=== PATIENT | female | born 1985 | race Caucasian/White ===

== ENCOUNTER → 2018-11-24 | Outpatient (CLI) | payer OTHER ==
[2018-11-24 16:12] LABS: CHLAMYDIA DNA AMPLIFICATION NEGATIVE (NEGATIVE); GC DNA AMPLIFICATION NEGATIVE (NEGATIVE)
[2018-11-24 21:11] LABS: BASO % 0.3 % (0.0-1.0); EOS # 0.3 10^3/uL (0.0-0.5); EOS % 2.5 % (0.0-3.0); HEMATOCRIT 39.5 % (36.0-47.0); HEMOGLOBIN 13.3 g/dl (12.0-15.5); LYMPH # 1.4 10^3/uL (1.5-5.0); LYMPH % 13.1 % (24.0-44.0); MEAN CORPUSCULAR HGB CONC 33.7 g/dl (32.0-36.5); MEAN CORPUSCULAR VOLUME 89.2 fl (80.0-96.0); MONO # 0.9 10^3/uL (0.0-0.8); NEUTROPHILS # 8.3 10^3/uL (1.5-8.5); NEUTROPHILS % 75.6 % (36.0-66.0); PLATELET COUNT, AUTOMATED 224 10^3/uL (150-450); RED BLOOD COUNT 4.43 10^6/uL (4.00-5.40); WHITE BLOOD COUNT 10.9 10^3/uL (4.0-10.0)
[2018-11-27 12:52] LABS: HEPATITIS A ANTIBODY IGM NEGATIVE (NEGATIVE); HEPATITIS B CORE ANTIBODY IGM NEGATIVE (NEGATIVE); HEPATITIS B SURFACE ANTIGEN NEGATIVE (NEGATIVE)
== END ==
LOC: M SMT 10:25
PROVIDERS: ATTEND Advanced Practice Midwife
DX: Z34.82 Encounter for supervision of other normal pregnancy, second trimester (principal)

== ENCOUNTER → 2018-12-21 | Outpatient (CLI) | payer OTHER ==
--- NOTE | 2018-12-21 13:32 | REP ---
Obstetric ultrasound for anatomy: There is a single intrauterine gestation in a vertex presentation. There is movement and cardiac activity. The heart rate is 144 beats per minute. The placenta is anterior. There is no placenta previa or abruptio. The placenta is grade zero. The amniotic fluid volume subjectively is normal. The cervix measures 5.8 cm length. Gestational age by today's ultrasound is 21 weeks 6 days/EVELINA 04/27/2019. Gestational age by LMP is 21 weeks 1 day/EVELINA 05/02/2019. weight is for and 56 grams/1 pound, 0 ounces. This is the 73rd percentile for 21 weeks 4 days. The following anatomic structures are identified and are unremarkable: Cranium, choroid plexus, cavum septum pellucidum, cerebellum, face, facial profile, upper lip, lungs, four-chamber heart, cardiac right and left ventricular outflow tracts, diaphragm, stomach, cord insertion, three-vessel cord, kidneys, bladder, and upper lower extremities. Suboptimally demonstrated because of position is the spine. A followup study of the spine might be considered. Electronically Signed by Christopher Bonner MD 12/21/2018 01:25 P
== END ==
LOC: M RAD 09:04
PROVIDERS: ATTEND Advanced Practice Midwife
DX: Z34.82 Encounter for supervision of other normal pregnancy, second trimester (principal); Z3A.21 21 weeks gestation of pregnancy

== ENCOUNTER → 2019-01-05 | Outpatient (CLI) | payer OTHER ==
--- NOTE | 2019-01-05 18:30 | REP ---
Clinical: Anatomical evaluation. Comparison: 12/21/2018 . Findings: Examination demonstrates a single live intrauterine in variable presentation. motion is identified by technologist. Placenta is noted anterior and grade zero without evidence for placenta previa or abruption. Amniotic fluid volume is normal. Cervix measures 6.4 cm in length and appears closed. No evidence for nuchal cord. Gestational age by LMP 23 weeks 2 days with EVLEINA 05/02/2019 . Gestational age by current measurements 23 weeks 5 days with EVELINA 04/29/2019 . FHR equals 133 beats per minute. Estimated weight 620 grams ( 57 percentile). Anatomical assessment demonstrates normal structures including cranium, choroid plexus, cavum, cerebellum/posterior fossa, facial features, lungs, four-chamber heart/ventricular outflow tracts, diaphragm, stomach, cord insertion/three-vessel cord, kidneys/bladder, spine, and extremities. Impression: 1. Single live intrauterine in variable presentation demonstrating appropriate interval growth. 2. Anatomical assessment is complete and normal. No gross abnormalities are identified. Electronically Signed by Donal Daniel MD 01/05/2019 06:22 P
== END ==
LOC: M RAD 09:13
PROVIDERS: ATTEND Advanced Practice Midwife
DX: Z34.82 Encounter for supervision of other normal pregnancy, second trimester (principal); Z3A.23 23 weeks gestation of pregnancy

== ENCOUNTER → 2019-02-03 | Outpatient (CLI) | payer OTHER ==
[2019-02-03 10:15] LABS: HEMATOCRIT 34.9 % (36.0-47.0); HEMOGLOBIN 11.8 g/dl (12.0-15.5); MEAN CORPUSCULAR HEMOGLOBIN 29.6 pg (27.0-33.0); MEAN CORPUSCULAR HGB CONC 33.8 g/dl (32.0-36.5); MEAN CORPUSCULAR VOLUME 87.7 fl (80.0-96.0); PLATELET COUNT, AUTOMATED 209 10^3/uL (150-450); RED BLOOD COUNT 3.98 10^6/uL (4.00-5.40); WHITE BLOOD COUNT 10.3 10^3/uL (4.0-10.0)
[2019-02-03 10:29] LABS: GLUCOSE CHALLENGE TEST 1 HOUR 93 MG/DL (LESS THAN 140)
[2019-02-03 11:21] LABS: RUBELLA IgG QUALITATIVE IMMUNE (IMMUNE)
== END ==
LOC: M LAB 08:09
PROVIDERS: ATTEND Advanced Practice Midwife
DX: Z34.82 Encounter for supervision of other normal pregnancy, second trimester (principal)

== ENCOUNTER → 2019-04-05 | Outpatient (REF) | payer OTHER | LOC: M SFHCWAGY 16:55 | PROVIDERS: ATTEND Advanced Practice Midwife | DX: Z34.93 Encounter for supervision of normal pregnancy, unspecified, third trimester (principal) ==

== ENCOUNTER 2019-05-05 17:51 | Inpatient (IN) | payer OTHER ==
[~2019-05-05] VITALS: Ht 170.2 cm; Wt 85.4 kg
[2019-05-05 18:16] VITALS: BP 129/87
[2019-05-05] MEDS ORDERED: COLA100C5 PO (18:25)
[2019-05-05] MEDS ORDERED: SENN1TAB8 PO (18:25)
[2019-05-05 19:29] VITALS: BP 136/88
[2019-05-05] MEDS: miSOPROStol 50 MCG 1/2 TAB (S0191) PO SCH (20:10)
[2019-05-05 20:11] VITALS: BP 130/70
[2019-05-05 20:37] LABS: HEMATOCRIT 35.3 % (36.0-47.0); HEMOGLOBIN 11.1 g/dl (12.0-15.5); MEAN CORPUSCULAR HEMOGLOBIN 25.6 pg (27.0-33.0); MEAN CORPUSCULAR HGB CONC 31.4 g/dl (32.0-36.5); MEAN CORPUSCULAR VOLUME 81.3 fl (80.0-96.0); PLATELET COUNT, AUTOMATED 209 10^3/uL (150-450); RED BLOOD COUNT 4.34 10^6/uL (4.00-5.40); WHITE BLOOD COUNT 10.3 10^3/uL (4.0-10.0)
[2019-05-05 21:50] VITALS: BP 114/68
[2019-05-05 22:54] VITALS: BP 123/74
[2019-05-06] VITALS (64 sets, daily range): BP systolic 69–153; BP diastolic 43–94
[2019-05-06] MEDS: miSOPROStol 50 MCG 1/2 TAB (S0191) PO SCH ×2 (00:21→04:45)
[2019-05-06] MEDS ORDERED: PROMETHAZINE INJ 25 MG/ML VIAL (J2550) IV ONE (05:15)
[2019-05-06] MEDS ORDERED: BUTORPHANOL 2 MG/ML INJ (J0595) IV ONE (05:15)
--- NOTE | 2019-05-06 05:23 | HPE ---
DATE OF ADMISSION: 05/05/2019 HISTORY OF PRESENT ILLNESS: Veda is as 34-year-old 2, para 1-0-0-1 at 40-2/7 weeks gestation, estimated date of confinement (EDC) of 05/02/2019 based on last menstrual period and confirmed by first trimester ultrasound. She presents to labor and delivery today for induction of labor due to post-term . She denies any regular painful contractions, vaginal bleeding and leakage of fluid. The fetus has been active. Her care was initiated in the first trimester at [facility]. Her course has been uncomplicated. OBSTETRICAL HISTORY: October 2016, 8 pounds 5 ounces female spontaneous vaginal delivery following induction of labor at 41 weeks gestation for gestational hypertension. OBSTETRIC LABS: O+, antibody screen negative, rubella immune, VDRL nonreactive. Urine culture no growth. Hep B surface antigen negative, HIV negative. Hep C antibody nonreactive. Gonorrhea and chlamydia negative, syphilis negative. Her quad screen returned normal. results of gestational diabetic screening normal at 93 and her GBS is negative. PAST MEDICAL HISTORY: 1. Childhood varicella. 2. Childhood epilepsy, last seizure in 2002. PAST SURGICAL HISTORY: [place] tooth extraction. FAMILY HISTORY: Hypertension. SOCIAL HISTORY: The patient is . She is a nonsmoker. She denies alcohol or drug use. No history of any sexually transmitted infections and denies history of abuse physical, sexual or emotional. ALLERGIES: SULFA. CURRENT MEDICATIONS - vitamin with iron OBJECTIVE: VITAL SIGNS: Temperature 98.7, pulse 98, respiration 18, blood pressure (BP) 129/87. heart is 150 with moderate variability, positive accelerations, no decelerations. There is no pattern of regular contractions. Her abdomen is gravid, cephalic presentation. Estimated weight 7 pounds 11 ounces to 8 pounds. Sterile vaginal exam: 1 cm dilated, 50% effaced, minus three station posterior moderate texture. No show with the exam. ASSESSMENT: Intrauterine at 42-2/7 weeks. heart rate is category one. PLAN: Admit the patient to labor and delivery. I did review risks, benefits and alternatives related to induction of labor. All of her questions have been answered. Routine labs have been ordered. Saline lock. Regular diet at this time. Out of bed ad rosemary. I plan to start misoprostol 50 mcg by mouth every 4 h for cervical ripening and then proceed to IV Pitocin. The patient is considering IV pain medications and/or an epidural for labor coping when she is in active labor. She has been verbally consented for emergency surgery and blood products if necessary. I do anticipate cervical ripening.
[2019-05-06] MEDS ORDERED: OXYTOCIN 30 UNITS IN 0.9% NaCl 500ML IV BAG (J2590) As Ordered ONE (06:55)
[2019-05-06] MEDS ORDERED: LACTATED RINGER'S 1000 ML IV ONE (07:00)
[2019-05-06] MEDS ORDERED: FENTANYL 2MCG/ML ROPIVACAINE 0.2% IN 0.9% NACL 100ML IVBAG As Ordered ONE (07:21)
[2019-05-06] MEDS ORDERED: ePHEDrine SULFATE 25 MG/5 ML(5MG/ML) SYRINGE As Ordered ONE (08:48)
[2019-05-06] MEDS: ePHEDrine SULFATE 25 MG/5 ML(5MG/ML) SYRINGE IV PRN ×3 (08:50→13:24)
[2019-05-06] MEDS ORDERED: diphenhydrAMINE INJ 50MG/ML VIAL (J1200) IV PRN ×2 (09:00→16:29)
[2019-05-06] MEDS ORDERED: REFRIGERATOR IV KEYS XX PRN (09:00)
[2019-05-06] MEDS ORDERED: ONDANSETRON 4MG/2ML VIAL (J2405) IV PRN ×3 (09:00→17:45)
[2019-05-06] MEDS ORDERED: EPIDURAL/PCA KEYS XX PRN (09:00)
[2019-05-06] MEDS ORDERED: FENTANYL/ROPIVACAINE/NACL BAG 100 ML EPIDURAL SCH (09:00)
[2019-05-06] MEDS ORDERED: LACTATED RINGER'S 1000 ML IV PRN (09:00)
[2019-05-06] MEDS ORDERED: NALOXONE INJ 0.4 MG/1 ML VIAL (J2310) IV PRN ×3 (09:00→16:29)
[2019-05-06] MEDS ORDERED: EPIDURAL COMMENT XX SCH (09:00)
[2019-05-06] MEDS ORDERED: BICITRA 30ML SOLN UDC PO ONE (16:00)
[2019-05-06] MEDS ORDERED: ceFAZolin SOD 2 GM in IV 1 EA IV ONE (16:00)
[2019-05-06] MEDS ORDERED: AZITHROMYCIN INJ 500 MG, VIAL MATE ADAPTER 1 EACH in D5W 250 ML IV ONE (16:00)
[2019-05-06] MEDS ORDERED: METOCLOPRAMIDE INJ 10MG/2ML VIAL (J2765) IV PRN (16:29)
[2019-05-06] MEDS ORDERED: NALBUPHINE HCL 10 MG/ML AMP (J2300) IV PRN (16:29)
[2019-05-06] MEDS ORDERED: KETOROLAC 60 MG/2 ML VIAL (J1885) As Ordered ONE (16:51)
[2019-05-06] MEDS ORDERED: ONDANSETRON 4MG/2ML VIAL (J2405) As Ordered ONE (16:51)
[2019-05-06] MEDS ORDERED: dexameTHASONE 4 MG/ML 1ML VIAL (J1100) As Ordered ONE (16:51)
[2019-05-06] MEDS ORDERED: OXYTOCIN INJ 10 UNITS/ML VIAL (J2590) As Ordered ONE (16:51)
[2019-05-06] MEDS ORDERED: MORPHINE PRES-FREE INJ 10 MG/10 ML VIAL (J2274) As Ordered ONE (16:51)
[2019-05-06] MEDS ORDERED: PHENYLephrine HCL 500 MCG/5 ML (100MCG/ML) SYRINGE (J2370) As Ordered ONE (17:03)
[2019-05-06] MEDS ORDERED: PERCOCET 5MG/325MG TAB PO PRN (17:15)
[2019-05-06] MEDS ORDERED: ONDANSETRON 4 MG ORAL DISINTEGRATING TAB (Q0162 PER 1MG) PO PRN (17:15)
[2019-05-06] MEDS ORDERED: fentaNYL 100 MCG/2 ML INJECTION (J3010) IV PRN (17:45)
[2019-05-06] MEDS ORDERED: oxyCODONE 5MG TAB PO PRN (17:45)
[2019-05-06] MEDS ORDERED: RHOGAM 300 MCG (1500 IU) INJ (J2790) IM SCH (18:00)
[2019-05-06] MEDS ORDERED: OXYTOCIN DRIP 30 UNITS in IV 1 EA IV SCH (18:00)
[2019-05-06] MEDS ORDERED: MEASLES,MUMPS,RUBELLA VACCINE INJ (MMR-II) (90707) SC SCH (18:00)
[2019-05-06] MEDS: DOCUSATE SODIUM 100 MG CAP PO PRN (21:27)
[2019-05-06] MEDS: LR 1,000 ML IV SCH (22:01)
[2019-05-06] MEDS: KETOROLAC 30 MG/ML VIAL (J1885) IV SCH (23:43)
[2019-05-07 02:00] VITALS: BP 102/61
[2019-05-07] MEDS: LR 1,000 ML IV SCH (02:00)
[2019-05-07 05:31] VITALS: BP 98/53
[2019-05-07] MEDS: KETOROLAC 30 MG/ML VIAL (J1885) IV SCH ×2 (05:32→10:32)
[2019-05-07 07:19] LABS: HEMATOCRIT 25.1 % (36.0-47.0); MEAN CORPUSCULAR HEMOGLOBIN 25.9 pg (27.0-33.0); MEAN CORPUSCULAR HGB CONC 32.3 g/dl (32.0-36.5); MEAN CORPUSCULAR VOLUME 80.2 fl (80.0-96.0); PLATELET COUNT, AUTOMATED 160 10^3/uL (150-450); RED BLOOD COUNT 3.13 10^6/uL (4.00-5.40); WHITE BLOOD COUNT 17.3 10^3/uL (4.0-10.0)
[2019-05-07 07:20] LABS: HEMOGLOBIN 8.1 g/dl (12.0-15.5)
[2019-05-07] MEDS ORDERED: SLF 3 ML SYR IV PRN (08:45)
[2019-05-07] MEDS: PRENATAL VITAMINS CHEWABLE TABLET PO SCH (08:45)
[2019-05-07 10:00] VITALS: BP 96/57
[2019-05-07] MEDS: PERCOCET 5MG/325MG TAB PO PRN ×2 (10:39→22:44)
[2019-05-07] MEDS: SLF 3 ML SYR IV SCH ×2 (12:46→22:12)
[2019-05-07 14:00] VITALS: BP 95/51
--- NOTE | 2019-05-07 14:31 | RO ---
DATE OF PROCEDURE: 05/06/2019 PREPROCEDURE DIAGNOSIS: 40 and 6/7 weeks gestation, arrest of dilation. POSTPROCEDURE DIAGNOSIS: 40 and 6/7 weeks gestation, arrest of dilation. PROCEDURE: Primary low transverse section. SURGEON: Dr. Romulo Wells CHASER HELPER: , DO ANESTHESIA: Epidural. ESTIMATED BLOOD LOSS: 800 mL. IV FLUIDS: 1300 mL lactated Ringers (LR). URINE OUTPUT: 75 mL. FINDINGS: 8 pound 14 ounce, 4020 gram, female infant, Apgars 9 and 9, occiput posterior, asynclitic, extended vertex. Normal uterus, fallopian tubes and ovaries. Clear amniotic fluid. DESCRIPTION OF PROCEDURE: The patient was taken to the operating room where epidural anesthesia was found to be adequate. She was prepped and draped in sterile fashion in the supine position. A Mendoza catheter was already in place. A Pfannenstiel skin incision was created with a scalpel and carried through to the fascia. The fascia was nicked and extended. The fascia was dissected off the rectus muscles. The peritoneal cavity was entered. A bladder flap was created. A Mobius retractor was placed. A curvilinear incision was made in the lower uterine segment until clear fluid was noted. This was extended manually. The infant was delivered from the vertex position without difficulty. The cord was doubly clamped and cut. The infant was handed off to the awaiting nurse. The placenta was expressed. The uterus was closed with #0 Vicryl in a running locked fashion. A second imbricating layer of #0 Vicryl was placed. The peritoneum was closed with #2-0 Vicryl. The Mobius was removed. The fascia was closed with #0 Vicryl in a running fashion. The deep layer was irrigated. The skin was closed with #4-0 Monocryl subcuticular sutures. Sponge, instrument and needle counts were correct.
[2019-05-07 17:47] VITALS: BP 103/60
[2019-05-07] MEDS: IBUPROFEN 800 MG TAB PO SCH (18:31)
[2019-05-07] MEDS: DOCUSATE SODIUM 100 MG CAP PO PRN (22:44)
[2019-05-08] MEDS: IBUPROFEN 800 MG TAB PO SCH (02:53)
[2019-05-08 03:00] VITALS: BP 106/70
[2019-05-08] MEDS: SLF 3 ML SYR IV SCH (06:00)
[2019-05-08 06:10] VITALS: BP 113/70
--- NOTE | 2019-05-08 06:56 | DS.PDOC ---
Discharge Summary General Date of Admission May 05, 2019 at 17:51 Date of Discharge 05/08/2019 Discharge Summary PROCEDURES PERFORMED DURING STAY: Primary section. ADMITTING DIAGNOSES: 1. Induction of labor at term. DISCHARGE DIAGNOSES: 1. Primary section for arrest of dilation. COMPLICATIONS/CHIEF COMPLAINT: Induction. HISTORY OF PRESENT ILLNESS: Ms Pepper was admitted for induction 05/06/2019. A primary section was performed by Dr Watson Wells for arrest of dilation on 05/06/2019. HOSPITAL COURSE: Ms Pepper feels well. Reports adequate pain management. OOB independently. She is on demand. Voiding QS and passing flatus. DISCHARGE MEDICATIONS: Please see below. ALLERGIES: Please see below. PHYSICAL EXAMINATION ON DISCHARGE: VITAL SIGNS: Please see below. GENERAL: Alert, NAD HEENT: WNL NECK: Supple CARDIOVASCULAR EXAMINATION: HRR, normotensive RESPIRATORY EXAMINATION: Clear and unlabored ABDOMINAL EXAMINATION: Fundus firm, dressing intact with old drainage EXTREMITIES: Equal strength and motion SKIN: Intact NEUROLOGICAL EXAMINATION: Grossly intact PSYCHIATRIC EXAMINATION: Appropriate LABORATORY DATA: Please see below. PROGNOSIS: Good ACTIVITY: As tolerated. DIET: As tolerated DISCHARGE PLAN: Home today DISPOSITION: Home with family. DISCHARGE INSTRUCTIONS: 1. Pelvic rest. Remove dressing on day 5. Call with fever, nausea, vomiting, chills, evidence of infection. RTO 2wks and 6 wks DISCHARGE CONDITION: Stable. Vital Signs/I&Os Vital Signs Date Time Temp Pulse Resp B/P (MAP) Pulse Ox O2 Delivery O2 Flow Rate FiO2 05/08/19 06:10 98.6 92 18 113/70 (84) 98 Room Air I&O- Last 24 Hours up to 6 AM 05/08/19 06:00 Intake Total 625 ml Balance 625 ml Laboratory Data Labs 24H Laboratory Tests 2 05/07/19 06:51: Nucleated Red Blood Cells % (auto) 0.0 CBC/BMP Laboratory Tests 05/07/19 06:51 Discharge Medications Scheduled Docusate Sodium (Colace) 100 Mg Capsule, 1 CAP PO BID, (Reported) Sennosides (Senna) 8.6 Mg Tablet, 1 TAB PO BID for constipation, (Reported) Allergies Coded Allergies: Sulfa (Sulfonamide Antibiotics) (Verified Allergy, Unknown, 05/05/19) Lisa Hou CNM May 08, 2019 06:56
[2019-05-08] MEDS ORDERED: IBUP80TA PO (06:59)
[2019-05-08] MEDS ORDERED: PERCOCET PO (06:59)
[2019-05-08] MEDS: PRENATAL VITAMINS CHEWABLE TABLET PO SCH (09:22)
== END 2019-05-08 11:33 | disposition home or self-care (01) | DRG 773 ==
LOC: M LDI 17:51 → M OBS 05-06 18:43
PROVIDERS: ADMIT Advanced Practice Midwife; ATTEND Specialist
PROC: 3E0P7GC Introduction of Other Therapeutic Substance into Female Reproductive, Via Natural or Artificial Opening (ICD-10-PCS; 2019-05-05)
PROC: 10D00Z1 Extraction of Products of Conception, Low, Open Approach (ICD-10-PCS; principal; 2019-05-06 17:28)
DX: O48.0 Post-term pregnancy (principal); Z3A.40 40 weeks gestation of pregnancy; O62.0 Primary inadequate contractions; O64.0XX0 Obstructed labor due to incomplete rotation of fetal head, not applicable or unspecified; Z37.0 Single live birth

== ENCOUNTER → 2020-05-29 | Outpatient (REF) | payer OTHER ==
[~2020-05-29] MED LIST: COLA100C5 PO; IBUP80TA PO; PERCOCET PO; SENN-80 PO
[2020-05-29 13:52] LABS: HEMATOCRIT 41.4 % (36.0-47.0); HEMOGLOBIN 13.8 g/dl (12.0-15.5); MEAN CORPUSCULAR HGB CONC 33.3 g/dl (32.0-36.5); PLATELET COUNT, AUTOMATED 245 10^3/uL (150-450); RED BLOOD COUNT 4.93 10^6/uL (4.00-5.40); WHITE BLOOD COUNT 9.2 10^3/uL (4.0-10.0)
[2020-05-29 15:12] LABS: HEPATITIS C VIRUS ABY INDEX < 0.0 INDEX (<0.8); HIV 1&2 SCREEN CENTAUR NEGATIVE (NEGATIVE)
== END ==
LOC: M PLALAB 11:20
PROVIDERS: ATTEND Obstetrics & Gynecology
DX: O34.219 Maternal care for unspecified type scar from previous cesarean delivery (principal)

== ENCOUNTER → 2020-07-21 | Outpatient (CLI) | payer OTHER ==
--- NOTE | 2020-07-21 10:26 | REP ---
INDICATION: ANATOMY. COMPARISON: None. TECHNIQUE: Real-time sonographic evaluation of the gravid uterus performed. FINDINGS: Estimated gestational age is19 weeks 4 days, EDC 12/11/2020. Today's measurements indicate appropriate growth. Presentation: Cephalic Placenta posterior, grade 1, without evidence of placenta previa. heart rate is recorded at 146 beats per minute. Amniotic fluid is subjectively normal. Closed cervical length is measured at 4.0 cm. Biometry chart: BPD: 45 mm, 19 weeks 4 days, 48th percentile. HC: 168 mm, 19 weeks 3 days, 47th percentile AC: 141 mm, 19 weeks 3 days, 48th percentile Femur length: 31 mm, 19 weeks 4 days, 49th percentile HC to AC ratio: 1.20, normal range 1.06-1.25. Estimated weight: 296g, 41st percentile. anatomy: Cranium: Grossly normal Lateral Ventricles/Choroid Plexus: Grossly normal Posterior Fossa/Cerebellum: Grossly normal Nose/lips/profile: Grossly normal Four chamber heart: Not well seen due to position. Right ventricular outflow tract: Not well seen due to position. Left ventricular outflow tract: Not well seen due to position. Left-sided stomach: Grossly normal Kidneys: Grossly normal Bladder: Grossly normal Cord Insertion: Grossly normal 3 vessel cord: Grossly normal Spine: Grossly normal IMPRESSION: Viable single intrauterine gestation as above. The heart structures are not well seen due to position. <Electronically signed by Christopher Ponce > 07/21/20 [id number]
== END ==
LOC: M WHC 08:53
PROVIDERS: ATTEND Obstetrics & Gynecology
DX: O34.219 Maternal care for unspecified type scar from previous cesarean delivery (principal)

== ENCOUNTER → 2020-08-22 | Outpatient (CLI) | payer OTHER ==
--- NOTE | 2020-08-22 10:56 | REP ---
INDICATION: F/U ANATOMY COMPARISON: 07/21/2020 TECHNIQUE: Transabdominal obstetrical ultrasound with color Doppler evaluation. FINDINGS: Examination demonstrates a single live intrauterine in breech presentation. motion is identified by technologist. Placenta is noted posterior and grade 1 without evidence for placenta previa or abruption. Amniotic fluid volume is normal. Cervix measures 3.5 cm in length and appears closed.. Gestational age by LMP 24 weeks 1 day with EVELINA 12/11/2020. Gestational age by current measurements 23 weeks 4 days with EVELINA 12/15/2020. FHR equals 141 beats per minute. Estimated weight 593 grams (15thpercentile). Anatomical assessment demonstrates normal four-chamber heart and cardiac ventricular outflow tracts. IMPRESSION: Single live intrauterine in breech presentation demonstrating appropriate interval growth. In conjunction with prior examination anatomical assessment is complete and normal. <Electronically signed by Donal Daniel > 08/22/20 [id number]
== END ==
LOC: M WHC 09:57
PROVIDERS: ATTEND Advanced Practice Midwife
DX: O32.1XX0 Maternal care for breech presentation, not applicable or unspecified (principal); Z3A.23 23 weeks gestation of pregnancy

== ENCOUNTER → 2020-08-23 | Outpatient (CLI) | payer OTHER | LOC: M WHC 08:39 | PROVIDERS: ATTEND Advanced Practice Midwife | DX: O34.219 Maternal care for unspecified type scar from previous cesarean delivery (principal) ==

== ENCOUNTER → 2020-09-14 | Outpatient (REF) | payer OTHER ==
[2020-09-14 13:55] LABS: HEMATOCRIT 39.7 % (36.0-47.0); MEAN CORPUSCULAR HEMOGLOBIN 29.1 pg (27.0-33.0); MEAN CORPUSCULAR HGB CONC 32.7 g/dl (32.0-36.5); PLATELET COUNT, AUTOMATED 209 10^3/uL (150-450); RED BLOOD COUNT 4.46 10^6/uL (4.00-5.40); WHITE BLOOD COUNT 10.8 10^3/uL (4.0-10.0)
== END ==
LOC: M PLALAB 08:29
PROVIDERS: ATTEND Advanced Practice Midwife
DX: O34.219 Maternal care for unspecified type scar from previous cesarean delivery (principal)

== ENCOUNTER → 2020-11-21 | Outpatient (REF) | payer OTHER | LOC: M SFHCWAGY 13:14 | PROVIDERS: ATTEND Advanced Practice Midwife | DX: Z36.89 Encounter for other specified antenatal screening (principal); Z3A.37 37 weeks gestation of pregnancy ==

== ENCOUNTER → 2020-12-04 | Outpatient (CLI) | payer OTHER | LOC: M LABSMTC 10:21 | PROVIDERS: ATTEND Specialist | DX: Z34.83 Encounter for supervision of other normal pregnancy, third trimester (principal); Z3A.39 39 weeks gestation of pregnancy; Z20.822 Contact with and (suspected) exposure to COVID-19 ==

== ENCOUNTER → 2020-12-11 | Outpatient (CLI) | payer OTHER ==
[~2020-12-11] MED LIST changes: +ACET-683 PO; +IBUP-1022 PO; +PERC5TAB12 PO
== END ==
LOC: M LABSMTC 11:20
PROVIDERS: ATTEND Specialist
DX: Z11.52 Encounter for screening for COVID-19 (principal)

== ENCOUNTER 2020-12-16 02:16 | Inpatient (IN) | payer OTHER ==
[~2020-12-16] VITALS: Ht 167.6 cm; Wt 86.2 kg
[~2020-12-16 02:16] MED LIST changes: -ACET-683 PO; -IBUP-1022 PO; -PERC5TAB12 PO
[2020-12-16] MEDS ORDERED: PERC5TAB12 PO (02:27)
[2020-12-16 02:45] VITALS: BP 118/85
[2020-12-16] MEDS ORDERED: LACTATED RINGER'S 1000 ML IV STA (02:53)
[2020-12-16] MEDS ORDERED: LR 1,000 ML IV SCH (02:55)
[2020-12-16] MEDS ORDERED: TRANEXAMIC ACID INJection 1,000 MG in NS 100 ML IV PRN (02:55)
[2020-12-16] MEDS ORDERED: CARBOPROST TROMETHAMINE 250 MCG/ML AMP IM PRN (02:55)
[2020-12-16] MEDS ORDERED: METHYLERGONOVINE MALEATE 0.2 MG/ML VIAL (J2210) IM PRN (02:55)
[2020-12-16] MEDS ORDERED: OXYTOCIN DRIP 30 UNITS in IV 1 EA IV PRN ×4 (02:55)
[2020-12-16] MEDS ORDERED: LIDOCAINE 1% MDV 20ML VIAL INFIL PRN (02:55)
[2020-12-16] MEDS ORDERED: OXYTOCIN INJ 10 UNITS/ML VIAL (J2590) IM PRN (02:55)
[2020-12-16 03:53] VITALS: BP 141/84
[2020-12-16 04:00] LABS: HEMATOCRIT 36.9 % (36.0-47.0); HEMOGLOBIN 11.9 g/dl (12.0-15.5); MEAN CORPUSCULAR HEMOGLOBIN 25.4 pg (27.0-33.0); MEAN CORPUSCULAR HGB CONC 32.2 g/dl (32.0-36.5); MEAN CORPUSCULAR VOLUME 78.7 fl (80.0-96.0); PLATELET COUNT, AUTOMATED 194 10^3/uL (150-450); RED BLOOD COUNT 4.69 10^6/uL (4.00-5.40); WHITE BLOOD COUNT 12.1 10^3/uL (4.0-10.0)
[2020-12-16 04:36] VITALS: BP 107/71
[2020-12-16 05:39] VITALS: BP 118/76
[2020-12-16 06:29] VITALS: BP 113/81
--- NOTE | 2020-12-16 08:14 | HPE ---
HISTORY AND PHYSICAL DATE OF ADMISSION: 12/16/2020 SUBJECTIVE: Veda is a 35-year-old, 3, para 2-0-0-2, at 40 weeks and 5 days with an EDC of 12/11/2020 based on last menstrual period, confirmed by first trimester ultrasound. She presents to Labor and Delivery today with reported onset of uncomfortable contractions at approximately 2130. She reports contractions as being every 3-4 minutes, denies vaginal bleeding and leakage of fluid. The fetus has been active. [facility] in the first trimester. course complicated by a history of a prior section due to the arrest of dilation with a history of a prior successful vaginal delivery. OBSTETRIC HISTORY: October,, 8 lb, 5 oz female, vaginal delivery, induction due to postterm, no complications. April,, 40 weeks and 6 days, 8 lb, 14 oz female, primary section due to arrest of dilation, OP presentation, asynclitic. OBSTETRIC LABS: O positive, antibody screen negative, syphilis negative. Gonorrhea and Chlamydia negative. Hepatitis B negative. Hepatitis C negative. HIV negative. Rubella immune. Gestational diabetic screening normal at 73. Panorama: Low risk for aneuploidy. GBS cultures negative. PAST MEDICAL HISTORY: 1. Seizures as a child. 2. Childhood varicella. PAST SURGICAL HISTORY: 1. [place] tooth extraction. 2. section. FAMILY HISTORY: Hypertension, asthma. SOCIAL HISTORY: The patient is , active duty soldier. She is a nonsmoker. She denies alcohol and drug use. No history of sexually transmitted infections and she denies history of abuse, physical, sexual and emotional. ALLERGIES: SULFA CAUSING A RASH. OBJECTIVE: Temp 98.1, pulse 122, respirations 18, BP 118/85. She is alert and oriented x3. She does appear uncomfortable with her contractions and is preferring to cope with her labor in out of bed positions. heart rate is 145 with moderate variability, positive accelerations, positive occasional early deceleration. Contractions every 3-4 minutes. Her abdomen is gravid, cephalic presentation. Estimated weight 8-1/2 lb. Sterile vaginal exam: 5-6 cm dilated, 90% effaced, -3 station. Membranes are intact, scant show with the exam. ASSESSMENT: Intrauterine at 40-5/7 weeks. heart rate category 1. Trial of labor after section. PLAN: Admit the patient to labor and delivery, out of bed ad rosemary, clear liquid diet, routine laboratories. The patient may consider an epidural so IV fluid bolus has been started. May consider Pitocin augmentation and/or assisted rupture of membranes if necessary following epidural administration. The patient has been verbally consented for emergency surgery and blood products if they are necessary. I do anticipate continued active labor and a vaginal delivery after section. Risks, benefits and alternatives have been reviewed with the patient and her and all of their questions have been answered.
--- NOTE | 2020-12-16 08:49 | DSES ---
DISCHARGE SUMMARY DATE OF ADMISSION: 12/16/2020 DATE OF DISCHARGE: 12/16/2020 DISCHARGE DIAGNOSIS: Intrauterine at 40-5/7 weeks gestation, not in active labor. HISTORY: Veda is a 35-year-old 3, para 2-0-0-2. She is at 40-5/7 weeks gestation. She was admitted to labor and delivery with contractions that were every three minutes and palpated moderate. Her vaginal exam upon arrival was 5-6, 90, and -3. She received an IV fluid bolus and her contractions spaced out to seven minutes apart, and she reports that they are not uncomfortable. She denies leakage of fluid and vaginal bleeding. The fetus has been active since her arrival. PAST MEDICAL HISTORY: Significant for prior section as well as a prior successful vaginal delivery. I reviewed options of expectant management, labor augmentation or induction with IV Pitocin and the opportunity to return home and await for active labor. She is scheduled for a post-term induction in 48 hours. She and her partner had a lengthy discussion and decided to return home and await an active labor. Her cervix was unchanged after four hours of observation. PLAN: Discharge the patient home. I did review signs and symptoms of active labor, movement counts and danger signs. I reviewed access to care. I reviewed the plan of care if labor does not return that she will be called in 48 hours approximately for a scheduled post-term induction. I reviewed her cervix is ripe for induction of labor. She and her partner's questions have been answered. Risks, benefits, and alternatives have been reviewed and they will be discharged home.
== END 2020-12-16 07:29 | disposition home or self-care (01) | DRG 833 ==
LOC: M LDO 02:16 → M LDI 02:56
PROVIDERS: ADMIT Advanced Practice Midwife; ATTEND Advanced Practice Midwife
DX: O47.1 False labor at or after 37 completed weeks of gestation (principal); O48.0 Post-term pregnancy; O34.211 Maternal care for low transverse scar from previous cesarean delivery; Z3A.40 40 weeks gestation of pregnancy

== ENCOUNTER 2020-12-16 15:45 | Inpatient (IN) | payer OTHER ==
[2020-12-16] VITALS (25 sets, daily range): BP systolic 106–175; BP diastolic 59–106
[~2020-12-16] VITALS: Ht 167.6 cm; Wt 86.2 kg
[~2020-12-16 15:45] MED LIST changes: +PERC5TAB12 PO
[2020-12-16] MEDS ORDERED: METHYLERGONOVINE MALEATE 0.2 MG/ML VIAL (J2210) IM PRN (16:20)
[2020-12-16] MEDS ORDERED: TRANEXAMIC ACID INJection 1,000 MG in NS 100 ML IV PRN (16:20)
[2020-12-16] MEDS ORDERED: OXYTOCIN DRIP 30 UNITS in IV 1 EA IV PRN ×4 (16:20)
[2020-12-16] MEDS ORDERED: CARBOPROST TROMETHAMINE 250 MCG/ML AMP IM PRN (16:20)
--- NOTE | 2020-12-16 16:30 | HPEPDOC ---
Obstetrical History & Physical General Date of Admission Dec 16, 2020 at 16:17 Primary Care Physician: BESSY VICENTE MD History of Present Illness Patient is a 35yo at 40w5d who presents in active labor. Patient was seen on L&D last night with painful regular contractions. At that time she was 6cm dilated and was placed in a room to await an epidural. However, after IVF bolus, contractions had spaced out and she had not made cervical change. After counseling and discussing options, patient had decided to go home and labor at home. Pt represented when her contractions came back and progressed to the point that she was kevin every 3 minutes. She denies any lof/vb. Reports +FM Chief Complaint: Contractions, term Information Provided By: Patient Age: 35 : 3 Term: 2 Pre-term: 0 Abortions: 0 Livin Care Care: Good Care Dating Final EDC: Dec 11, 2020 EGA at Admission: 40.5 Antepartum Course Diagnos(e)s 1. history of LTCS x2 Past Medical History Past Obstetrical History : Past Obstetrical History: Multigravida Past Medical History Surgical History: section (G2, failed IOL ) Social History Marital Status: Family situation: Spouse/partner home * Smoker: non-smoker Alcohol: Denies Drugs: denies Abuse Violence Screening Have you been hit/kicked/slapp: No Have you been sexually assault: No Imunizations Tdap status: current Allergies Coded Allergies: Sulfa (Sulfonamide Antibiotics) (Verified Allergy, Unknown, 05/05/19) rash Medications No Active Prescriptions or Reported Meds Physical Examination Physical Examination GENERAL: Alert and oriented times three. BREAST: . ABDOMEN: Gravid and non-tender to touch. FETUS: Is vertex (VTX) by BSUS HEART RATE: Regular rate and rhythm. LUNGS: Clear to auscultation (CTA). EXTREMITIES: No edema. No clonus. Deep tendon reflexes (DTRs) + 2 Laboratory Data Urine Culture: No Growth Pertinent Laboratoy Data Blood Type: O+ RBC Antibody Screen: Negative HIV: Negative Hepatitis B: Negative Hepatitis C: Negative Rapid Plasma Reagin: Nonreactive Rubella: Immune Chlamydia/Gonorrhea: Negative Group B Streptococcus: Negative Glucose Tolerance Test: 73 Vaginal Examination Dilation: 7 cm Effacement: 80% Station: -2 Cervical Consistency: Soft Cervical Position: Middle Presentation: Cephalic presentation Position: Vertex (occiput) Assessment Heart Rate (FHR): 140 Variability: Moderate Accelerations: Present Decelerations: None Tocometer Contractions: Yes Frequency: regular, every 1-3 min. Assessment/Plan Assessment Veda is a 35-year-old (G)3 para (P)2001 at 40+5 weeks. Presents to Labor and Delivery (L&D) in active labor 1. Labor - head ballotable, not able to AROM at this time - CEFM/TOCO, cat I tracing - epidural PRN 2. TOLAC - Active type and screen - epidural PRN - no s/sx of rupture Will continue expectant management at this time Plan Admit and orient. Marketing Regional Consultant and consent. Diet: . Group B Streptococcus (GBS) [negative]. Labs and intravenous (IV) per unit protocol. Counseled on Pitocin and induction of labor (IOL). Lactated Ringers (LR): Bolus mL, then at mL/hr. Anticipate [normal spontaneous delivery ()]. C-S as appropriate. BESSY VICENTE MD Dec 16, 2020 16:30
[2020-12-16] MEDS ORDERED: LR 1,000 ML IV ONE (18:00)
[2020-12-16] MEDS ORDERED: FENTANYL 2MCG/ML ROPIVACAINE 0.2% IN 0.9% NACL 100ML IVBAG As Ordered ONE (18:07)
[2020-12-16] MEDS: LR 1,000 ML IV SCH ×2 (18:33→21:44)
[2020-12-16] MEDS ORDERED: diphenhydrAMINE 50MG/ML VIAL (J1200) IV PRN (18:40)
[2020-12-16] MEDS ORDERED: LACTATED RINGER'S 1000 ML IV PRN (18:40)
[2020-12-16] MEDS ORDERED: ONDANSETRON 4MG/2ML VIAL IV PRN (18:40)
[2020-12-16] MEDS ORDERED: EPIDURAL/PCA KEYS XX PRN (18:40)
[2020-12-16] MEDS ORDERED: EPIDURAL COMMENT XX SCH (18:40)
[2020-12-16] MEDS ORDERED: FENTANYL/ROPIVACAINE/NACL BAG 100 ML EPIDURAL SCH (18:40)
[2020-12-16] MEDS ORDERED: ePHEDrine SULFATE 25 MG/5 ML(5MG/ML) SYRINGE IV PRN (18:40)
[2020-12-16] MEDS ORDERED: NALOXONE INJ 0.4MG/1ML VIAL (J2310 PER 1MG) IV PRN (18:40)
[2020-12-16] MEDS ORDERED: REFRIGERATOR IV KEYS XX PRN (18:40)
[2020-12-16] MEDS ORDERED: LR 1,000 ML IV SCH (19:25)
[2020-12-16] MEDS ORDERED: OXYTOCIN DRIP 30 UNITS in IV 1 EA IV SCH (19:25)
[2020-12-16 19:30] LABS: HEMATOCRIT 37.5 % (36.0-47.0); HEMOGLOBIN 12.2 g/dl (12.0-15.5); MEAN CORPUSCULAR HEMOGLOBIN 25.8 pg (27.0-33.0); MEAN CORPUSCULAR HGB CONC 32.5 g/dl (32.0-36.5); MEAN CORPUSCULAR VOLUME 79.4 fl (80.0-96.0); PLATELET COUNT, AUTOMATED 213 10^3/uL (150-450); RED BLOOD COUNT 4.72 10^6/uL (4.00-5.40); WHITE BLOOD COUNT 11.8 10^3/uL (4.0-10.0)
[2020-12-16] MEDS ORDERED: CALCIUM CARBONATE 500 MG CHEW U/D PO ONE (19:30)
[2020-12-16 19:43] LABS: TOTAL PROTEIN,RANDOM URINE 14.5 MG/DL (0.0-12.0)
[2020-12-16 19:57] LABS: ALBUMIN 2.7 GM/DL (3.2-5.2); ALT/SGPT 14 U/L (12-78); BILIRUBIN,TOTAL 0.5 MG/DL (0.2-1.0); BLOOD UREA NITROGEN 4 MG/DL (7-18); CALCIUM LEVEL 8.7 MG/DL (8.5-10.1); CARBON DIOXIDE LEVEL 23 MEQ/L (21-32); CHLORIDE LEVEL 108 MEQ/L (98-107); CREATININE FOR GFR 0.64 MG/DL (0.55-1.30); GLOMERULAR FILTRATION RATE > 60.0 (>60); GLUCOSE, FASTING 90 MG/DL (70-100); SODIUM LEVEL 139 MEQ/L (136-145)
[2020-12-17] VITALS (20 sets, daily range): BP systolic 100–171; BP diastolic 59–115
[2020-12-17] MEDS ORDERED: diphenhydrAMINE 50MG/ML VIAL (J1200) IV ONE (00:05)
--- NOTE | 2020-12-17 00:13 | IPNPDOC ---
Obstetrical Progress Note Date of Service Dec 17, 2020 Subjective Patient is comfortable with the epidural, however, starting to feel more pressure Objective Vital Signs Date Time Temp Pulse Resp B/P (MAP) Pulse Ox O2 Delivery O2 Flow Rate FiO2 12/16/20 23:23 93 18 116/68 (84) 12/16/20 21:55 98.0 12/16/20 19:27 98 12/16/20 15:53 Room Air Assessment Heart Rate (FHR): 140 Variability: Moderate Accelerations: Present Decelerations: Variable, Intermittent Heart Rate Tracing: Category II Tocometer Contractions: Yes Frequency: every 1-3 min. Sterile Vaginal Examination Dilation: 7 cm Effacement (%): 80% Station: 0 Cervical Consistency: Medium Cervical Position: Middle Postion/Presentation: Cephalic presentation Assessment and Plan Status: Reassuring Group B Streptococcus: Negative Anticipate: Vaginal Delivery Additional Comments station has improved from -2 to 0 station head is now well applied to the cervix which is improved since SROM Will give benadryl IV for swelling in the cervix RDP currently at 3u, will increase at this time Continue augmentation with expectant management BESSY VICENTE MD Dec 17, 2020 00:13
[2020-12-17] MEDS ORDERED: RHOGAM 300 MCG (1500 IU) INJ (J2790) IM SCH (04:40)
[2020-12-17] MEDS ORDERED: MEASLES,MUMPS,RUBELLA VACCINE INJ (MMR-II) (90707) SC SCH (04:40)
[2020-12-17] MEDS ORDERED: DOCUSATE SODIUM 100MG CAPSULE PO PRN (04:40)
[2020-12-17] MEDS ORDERED: DIBUCAINE 1% OINTMENT 30GM TOP PRN (04:40)
[2020-12-17] MEDS ORDERED: METHYLERGONOVINE MALEATE 0.2 MG TAB PO PRN (04:40)
[2020-12-17] MEDS ORDERED: IBUPROFEN 600MG TAB PO PRN (04:40)
[2020-12-17] MEDS ORDERED: ONDANSETRON 4MG/2ML VIAL IV PRN (04:40)
--- NOTE | 2020-12-17 04:51 | DNPDOC ---
[facility] Delivery Note Delivery Note DATE OF DELIVERY: 12/17/20 PREDELIVERY DIAGNOSIS: Painful regular contraction with history of LTCS at 40- 5/7 weeks' gestation and labor. POST DELIVERY DIAGNOSIS: Delivered. PROCEDURE: spontaneous vaginal after . PAVING FOREMAN: Dr. Bessy Vicente ANESTHESIA: epidural. ESTIMATED BLOOD LOSS: 450 mL. FINDINGS: 8 pound 6 ounce female infant, Score 7/8, tight nuchal cord times two. Evidence of subclinical placental abruption with clots delivered after expression of the placenta DELIVERY SUMMARY: Patient is a 35-year-old 3 now para 3003 who was admitted to labor and delivery for painful regular uterine contractions with a history of a LTCS. On admission, patient was found to be 7cm dilated, however, the head was not engaged. She received an epidural and her contractions spaced to ever 7 minutes. She was started on oxytocin for labor augmentation. She ruptured spontaneously for light meconium stained fluid. The NICU care team was notified. Despite being 7cm dilated, the patient was not in active labor. After augmentation with pitocin, the patient made slow progress to 9cm dilated with a thin rim of cervix. With gentle pushes with contractions the remaining cervix was gentle reduced behind the head and she was called complete at that time. Patient pushed well with the next contractions and delivered a female infant over an intact perineum. The was placed on the patient's chest and the cord was clamped and cut. At this time, the placenta was delivered with manual traction and expression. Several small blood clots were expressed with the placenta suggestive of a possible placental abruption. The perineum was inspected and a small first degree laceration was identified and repaired with 3.0 vicryl suture. A leigh retractor was used to inspect the cervix and there was no evidence of cervical injury. Fundal massage yielded no further blood clots and the fundus was noted to be firm. Sponge and sharp count correct. BESSY VICENTE MD Dec 17, 2020 04:51
[2020-12-17] MEDS ORDERED: TRANEXAMIC ACID 100 MG/ML 10ML VIAL As Ordered ONE (05:09)
[2020-12-17] MEDS ORDERED: OXYTOCIN 30 UNITS IN 0.9% NaCl 500ML IV BAG (J2590) As Ordered ONE (05:12)
[2020-12-17] MEDS ORDERED: LIDOCAINE 1% MDV 20ML VIAL As Ordered ONE (05:15)
[2020-12-17] MEDS ORDERED: TRANEXAMIC ACID INJection 1,000 MG in NS 100 ML IV PRN (05:30)
[2020-12-17] MEDS ORDERED: OXYTOCIN DRIP 30 UNITS in IV 1 EA IV PRN (05:30)
[2020-12-17] MEDS: PRENATAL VITAMINS CHEWABLE TABLET PO SCH (07:53)
[2020-12-17] MEDS: ACETAMINOPHEN 500 MG TAB PO PRN ×2 (07:54→21:00)
[2020-12-17] MEDS ORDERED: SLF 3 ML SYR IV PRN (18:50)
[2020-12-17] MEDS: SLF 3 ML SYR IV SCH (22:46)
[2020-12-18] MEDS: SLF 3 ML SYR IV SCH (05:37)
[2020-12-18 06:00] VITALS: BP 128/93
[2020-12-18] MEDS: PRENATAL VITAMINS CHEWABLE TABLET PO SCH (09:12)
[2020-12-18] MEDS ORDERED: IBUP-1022 PO (10:43)
[2020-12-18] MEDS ORDERED: ACET-683 PO (10:43)
== END 2020-12-18 12:35 | disposition home or self-care (01) | DRG 807 ==
LOC: M LDO 15:45 → M LDI 16:17 → M OBS 12-17 10:13
PROVIDERS: ADMIT Obstetrics & Gynecology; ATTEND Obstetrics & Gynecology
PROC: 10E0XZZ Delivery of Products of Conception, External Approach (ICD-10-PCS; principal; 2020-12-17)
PROC: 0HQ9XZZ Repair Perineum Skin, External Approach (ICD-10-PCS; 2020-12-17)
DX: O48.0 Post-term pregnancy (principal); Z37.0 Single live birth; O34.211 Maternal care for low transverse scar from previous cesarean delivery; Z3A.40 40 weeks gestation of pregnancy; O70.0 First degree perineal laceration during delivery